=== PATIENT | male | born 1990 | race Caucasian/White ===

== ENCOUNTER 2016-09-06 08:40 | Emergency (ER) | payer MEDICAID ==
[2015-09-02 11:58] VITALS: BMI 26.5
[~2016-09-06 08:40] MED LIST: DEPAKOTE ER500 MG PO; ULTRAM50 MG PO
== END 2016-09-06 19:08 | disposition left against medical advice (07) ==
LOC: D.ER 08:40
DX: F14.23 Cocaine dependence with withdrawal (principal)

== ENCOUNTER 2016-09-20 01:21 | Emergency (ER) | payer MEDICAID ==
[2015-09-02 11:58] VITALS: BMI 26.5
[2016-09-20 03:36] LABS: BASOPHILS 0.2 % (0-2); EOSINOPHILS 9.3 % (0-7); HEMOGLOBIN 17.2 g/dL (13.5-17.5); IMMATURE GRANULOCYTES 0.2 % (0-5); LYMPHOCYTES 29.5 % (15-50); MCH 30.8 pg (26.0-34.0); MCHC 34.4 g/dL (31.0-37.0); MCV 89.4 fL (80.0-100.0); MEAN PLATELET VOLUME 10.7 fL (7.4-10.4); MONOCYTES 9.2 % (2-11); NEUTROPHILS 51.6 % (40-80); PLATELET COUNT 244 10x3/uL (130-400); RBC 5.59 10x6/uL (4.20-6.10); RDW 12.1 % (11.5-14.5)
[2016-09-20 03:50] LABS: ALBUMIN 3.9 g/dL (3.4-5.0); ALKALINE PHOSPHATASE 43 U/L (46-116); ALT (SGPT) 46 U/L (10-68); BILIRUBIN - TOTAL 1.01 mg/dL (0.2-1.3); CALC OSMOLALITY 276 mosm/kg (275-300); CALCIUM 9.3 mg/dL (8.5-10.1); CARBON DIOXIDE 33.8 mmol/L (21.0-32.0); CHLORIDE - SERUM 100 mmol/L (98-107); CREATININE - SERUM 0.9 mg/dL (0.6-1.3); GLUCOSE 85 mg/dL (74-106); PROTEIN - SERUM 7.9 g/dL (6.4-8.2); SODIUM 139 mmol/L (136-145); UREA NITROGEN 13 mg/dL (7-18); eGFR NON AFRICAN AMERICAN > 90 mL/min (90-120)
[2016-09-20 03:57] LABS: CREATINE KINASE 107 UL (21-232); PRO BNP 10 pg/mL (0-125)
[2016-09-20 04:06] LABS: TROPONIN-I < 0.017 ng/mL (0.000-0.060)
== END 2016-09-20 04:30 | disposition home or self-care (01) ==
LOC: D.ER 01:21
PROVIDERS: Family Medicine
DX: F41.9 Anxiety disorder, unspecified (principal); F15.10 Other stimulant abuse, uncomplicated; G40.909 Epilepsy, unspecified, not intractable, without status epilepticus